=== PATIENT | female | born 1945 | race Caucasian/White ===

== ENCOUNTER 2022-05-23 06:15 | Observation (INO) ==
--- NOTE | 2022-04-20 11:11 | PAT Medication Instructions ---
Medication Instructions Date of Service April 20, 2022 Home Medications buspirone 5 mg tablet 10 mg PO BID escitalopram oxalate 10 mg tablet 10 mg PO QAM amlodipine 10 mg tablet 10 mg PO HS PRN hydroxyzine HCl 25 mg tablet 25 mg PO HS Take morning of surgery With a small sip of water, OTHERWISE NOTHING TO EAT OR DRINK AFTER MIDNIGHT: buspirone 5 mg tablet 10 mg PO BID escitalopram oxalate 10 mg tablet 10 mg PO QAM Take evening before surgery buspirone 5 mg tablet 10 mg PO BID amlodipine 10 mg tablet 10 mg PO HS PRN hydroxyzine HCl 25 mg tablet 25 mg PO HS Other Notes If you have any questions please call us at [phone] or [phone] or [phone] or [phone]
--- NOTE | 2022-04-25 10:59 | Anesthesiology Consultation ---
Date of Service April 25, 2022 Assessment & Plan (1) Encounter for pre-operative examination: - awaiting echo. - cardiac murmur/MOSS: no previous echocardiogram per PCP office. Case discussed with Dr. Correa who advised patient to have echocardiogram prior to surgery. Optimization note completed for PCPAr Ramirez with surgeon's office made aware. - COVID screening: Per assessment on 04/25/2022: Travel screen negative, no known COVID-19 positive contacts or current COVID-19 related symptoms in past 2 weeks. Surgeon arranging preop COVID testing, scheduled 05/19/2022. Awaiting results. Chart Review Chart Review: Pending: Refer to Additional Notes / Consult section and Patient seen in Pre Admission Testing Teaching & Discussion Pre-Anesthesia Teaching/Discussion Notes: Instructed NPO after midnight before surgery, except medications with 15 cc of water. Medication instructions provided according to the PAT guidelines. History Surgery Operation Date: 05/23/22 10:35 Proposed Procedures p Right Total Knee Arthroplasty - Aníbal Sherwood DO Height/Weight Height: 5 ft 7 in Weight: 94.3 kg Allergies Allergy/AdvReac Type Severity Reaction Status Date / Time No Known Allergies Allergy Verified 04/05/22 15:25 Medications Home Medications Medication Instructions Recorded Confirmed Last Taken buspirone 5 mg tablet 10 mg PO BID 03/29/22 04/05/22 Unknown escitalopram oxalate 10 mg tablet 10 mg PO QAM 03/29/22 04/05/22 Unknown amlodipine 10 mg tablet 10 mg PO HS PRN Other 04/05/22 04/05/22 Unknown hydroxyzine HCl 25 mg tablet 25 mg PO HS 04/05/22 04/05/22 Unknown Past Medical History Medical History (Updated 04/25/22 @ 13:52 by Josselyn Cardona PA-C) Anxiety Cardiac murmur x yrs per pt, denies previous echocardiogram Depression Hypertension controlled, stable per pt SOB (shortness of breath) on exertion occ with 1 FOS Patient denies h/o stroke, seizures, heart attack, heart failure, DM, blood clots or blood transfusions. Exercise / Class Metabolic Activity II 4-5 Yardwork/Stairs/Walk up hill (occ SOB with 1 FOS, slight increase over time-pt feels d/t reduced activity with knee pain; denies chest discomfort) Past Family History Family History Other No known health problems Past Surgical History Surgical History History of section X 5 Past Anesthesia History No Hx of Anesthesia Complications and No Family Hx of Anesthesia Complications History of PONV No Hx of PONV and No Hx of Motion Sickness Social History Smoking Status: Never smoker Do You Dip or Chew Tobacco: No Hx Alcohol Use: No Hx Substance Use: No Review of Systems Patient denies chest pain, shortness of breath, snoring, witnessed apneas, reflux, fever, chills, cough, wheezing, dizziness, lightheadedndess or palpitations. Physical Exam Vital Signs Vitals BP 147/85 P 82 TEMP 98.2 SP02 97% on RA RESP 17 Physical Full cervical extension range of motion without pain TMD 3.5 finger breadths Mallampati Score 3 Dentition: intact, one front chipped upper; several loose lower teeth; denies caps/crowns, implants or bridges Lungs: normal respiratory effort. Clear throughout to auscultation, no adventitious breath sounds Cardiac: regular rate and rhythm, 2/6 systolic murmur noted Carotid arteries: negative bruit bilat Lab Results Anesthesia Preop Results Results Anesthesia Widget: WBC 7.81 K/ul (4.8-10.8) 04/25/22 Hgb 12.2 g/dl (12.0-16.0) 04/25/22 Hct 37.5 % (34.1-44.9) 04/25/22 Plt 302 K/uL (130-400) 04/25/22 Na 138 mmol/L (136-145) 04/25/22 K 4.1 mmol/L (3.5-5.1) 04/25/22 Cl 105 mmol/L (98-107) 04/25/22 CO2 27 mmol/L (21-32) 04/25/22 BUN 25 mg/dl (6-23) H 04/25/22 Creat 1.04 mg/dl (0.6-1.2) 04/25/22 Glucose Level 82 mg/dl (70-99(Fasting)) 04/25/22 PT 9.8 Seconds (9.0-12.0) 04/25/22 PTT 26.3 Seconds (21.0-31.0) 04/25/22 INR 0.9 (0.9-1.1) 04/25/22 Blood Type A Positive 04/25/22 Antibody Screen NEGATIVE 04/25/22 Testing Electrocardiogram Date: 04/25/22 NSR, rate 79 bpm Chest X-Ray Date: 04/25/22 No pneumothorax. No pleural effusions. There is mild diffuse interstitial thickening. This is likely chronic. Otherwise, no focal lung consolidations to suggest pneumonia. No evidence for pulmonary edema. The heart is top normal in size. There are calcifications within the aortic knob. Degenerative changes within the shoulders. Small linear scarlike density at the right lung base. [id number] degenerative changes within the thoracic spine. There is a 3.4 cm metallic pin overlying the soft tissues of the back near the thoracolumbar junction. This only seen on the lateral view and therefore may be external to the patient. IMPRESSION: 1. No acute process within the chest. 2. Mild interstitial thickening which is likely chronic. 3. There is a 3.4 cm metallic pin overlying the soft tissues of the back near the thoracolumbar junction. This only seen on the lateral view and therefore may be external to the patient.
--- NOTE | 2022-05-19 13:46 | History & Physical Report ---
Date of Service May 19, 2022 Assessment & Plan (1) Osteoarthritis of right knee: We will proceed with a right total knee arthroplasty. Postoperatively she will be started on aspirin for DVT prophylaxis and discharged home in our outpatient joint protocol. She plans to have therapy the following day. History of Present Illness Chief Complaint: Osteoarthritis of the right knee. Primary Care Provider: Ramila Palma is a pleasant 76-year-old female who has been dealing with chronic worsening right knee pain and disability. She has severe varus deformity of her right knee. She has difficult time with full extension. She has trouble walking around. She has moderate pain in her knee. X-rays and clinical examination were diagnostic for advanced osteoarthritis of the right knee. After failing conservative treatment, she has elected proceed with a right total knee arthroplasty.. Allergies Allergy/AdvReac Type Severity Reaction Status Date / Time No Known Allergies Allergy Verified 04/05/22 15:25 Home Medications Medication Instructions Recorded Confirmed Type buspirone 5 mg tablet 10 mg PO BID 03/29/22 04/05/22 History escitalopram oxalate 10 mg tablet 10 mg PO QAM 03/29/22 04/05/22 History amlodipine 10 mg tablet 10 mg PO HS PRN Other 04/05/22 04/05/22 History hydroxyzine HCl 25 mg tablet 25 mg PO HS 04/05/22 04/05/22 History Past Med/Surg History Medical History Anxiety Cardiac murmur x yrs per pt, denies previous echocardiogram Depression Hypertension controlled, stable per pt SOB (shortness of breath) on exertion occ with 1 FOS Surgical History History of section X 5 Family History Other No known health problems Social History Smoking Status: Never smoker Second Hand Exposure: No; Hx Alcohol Use: No Hx Substance Use: No Preferred Language: Turkmen Communication Ability: Effective Moisture Meter Operator Required: No Beliefs That Will Affect Care: L[employer]-Day L[employer]-Day Beliefs: HOLINESS Current Living Situation: Spouse and Family Feels Safe at Home: Yes Assistive Devices: Glasses Review of Systems All systems reviewed & are unremarkable except as noted in HPI & below. Physical Exam On physical examination of the right knee, she has very poor range of motion from 15 to 100 degrees. She has no instability. She is a varus deformity. She has tenderness palpation of the distal femoral condyles.. Constitutional WD/WN, vitals as above Eyes PERRL, conjunctivae normal, anicteric sclerae ENMT external ear and nose normal, oropharynx normal Neck trachea midline, no thyromegaly Respiratory normal respiratory effort, lungs clear to auscultation Cardiovascular RRR, no murmur, no edema Gastrointestinal (Abdomen) normal bowel sounds, soft, nontender, no hepatosplenomegaly Skin no rashes, warm and dry Psychiatric A+Ox3, euthymic affect Results & Data Results & Data Laboratory Results . Diagnostic Findings X-ray of the right knee shows advanced osteoarthritis with joint space narrowing, osteophyte formation, and [id number] articulation. PG Care Time/CCT Total # of Minutes Spent Total Time Spent with Patient: Total time spent is greater than 50% in coordination of care (as documented) at patient's floor/unit and/or counseling patient: Coding Level of Care Code None Diagnoses Osteoarthritis of right knee M17.11
[~2022-05-23 06:15] MED LIST: ACETAMINOPHEN 500 MG TAB PO SCH; FAMOTIDINE 20 MG TAB PO SCH; GABAPENTIN 300 MG CAP PO SCH; Ketorolac (*for OR use only*) 30 MG, dexAMETHasone 4 MG, KETAMINE HCL (**OR use only) 1... INFIL SCH; LR 500ML BOLUS, THEN 15ML/HR IV SCH; LR 60ML/HR IV SCH; TRANEXAMIC ACID 1,000 MG **IV Intra-op IV SCH; TRANEXAMIC ACID 1,000 MG **IV Pre-op IV SCH; ceFAZolin 2000MG 2,000 MG/15 ML SYR IV SCH; dexAMETHasone 4 MG TAB PO SCH
[2022-05-23] MEDS ORDERED: EPINEPHrine INJ 1 MG/ML AMP ONE (06:24)
[2022-05-23] MEDS ORDERED: DEXAMETHASONE SOD INJ 4 MG/ML VIAL ONE (06:24)
[2022-05-23] MEDS ORDERED: BUPIVACAINE 0.25% 30 ML VIAL ONE (06:24)
[2022-05-23] MEDS ORDERED: MEPIVACAINE HCL 1.5% 30 ML VIAL ONE (06:25)
--- NOTE | 2022-05-23 06:41 | History & Physical Bridge Note ---
Date of Service May 23, 2022 History & Physical Bridge Note I have examined the patient, reviewed the History & Physical and in the interval since the performance of the History & Physical I have noted the following changes of clinical significance: no changes noted
[2022-05-23] MEDS ORDERED: ONDANSETRON INJ 2 MG/ML 2 ML VIAL ONE (07:36)
[2022-05-23] MEDS ORDERED: LIDOCAINE 2% MPF LOCAL 5 ML VIAL INFIL ONE (07:36)
[2022-05-23] MEDS ORDERED: PROPOFOL IV EMULSION 10 MG/ML 20 ML VIAL IV ONE (07:36)
[2022-05-23] MEDS ORDERED: MIDAZOLAM HCL 1 MG/ML 2ML VIAL ONE (07:36)
[2022-05-23] MEDS ORDERED: LIDOCAINE 2%/EPINEPHRINE 1:200,000 20 ML SDV ONE (08:13)
[2022-05-23] MEDS ORDERED: ORTHO JOINT ANESTHETIC ONE (08:33)
[2022-05-23] MEDS ORDERED: PHENYLEPHRINE HCL 10 MG/ML VIAL ONE (10:00)
[2022-05-23] MEDS ORDERED: oxyCODONE/ACETAMINOPHEN 5mg/325mg TAB PO PRN (10:13)
--- NOTE | 2022-05-23 10:15 | Operative Report ---
PG Post Operative Report Pre & Post Diagnosis Operation Date: 05/23/22 08:50 Pre-Op Diagnosis: Right Knee Osteoarthritis Post-Op Diagnosis: Right Knee Osteoarthritis I identified the patient and participated in the time-out.: Yes Procedure Operation Date: 05/23/22 08:50 Actual Procedures p Right Total Knee Arthroplasty(Right) - Aníbal Sherwood DO Surgeon Aníbal Sherwood DO Medical Field Representative Aníbal Rowland PA-C Estimated Blood Loss 20 Findings Consistent with Post-Op Diagnosis Specimens Right femoral and tibial bone Description of Procedure Implants used: I used a [employer] Person[employer] total knee arthroplasty system with a size 6 PS standard femur, E tibia with a 30 mm stem extension, 31 oval patella, and a size 10 CPS polyethylene bearing. All components were cemented in place with Biomet cement. Minerva arrived [facility] for the above procedure. She was seen in the preoperative holding area and the operative extremity was identified and signed. She was given a preoperative antibiotic, TXA, an epidural anesthetic and an adductor nerve block. She was taken back to the operating room and laid on the table in supine position. She was given basic sedation. The operative knee was then prepped and draped in sterile fashion. A timeout was done, and the patient and the operative extremity was properly identified. A midline incision was made directly over the patella. Dissection was taken down to the extensor mechanism. A subvastus arthrotomy was used. The medial retinaculum was released and the fat pad was mostly excised. The knee was flexed and the ACL, PCL, and meniscus were removed. A drill was sent down the center of the femoral canal followed by an intramedullary mayelin. Off that mayelin a distal femoral cutting block was placed. 9 mm was resected off the distal femur at 5 of valgus. A posterior referencing AP sizing guide was then placed on the distal femur. The femur measured to be a size 6. 2 drill holes were placed in 3 of external rotation. A 4-in-1 cutting block was then impacted into place. Anterior, posterior, and chamfer cuts were then made. The proximal tibia was then exposed. An external tibial alignment guide was placed. A tibial cut guide was then anchored in place and the proximal tibia was then resected. The posterior aspect of the knee was then ope karen up and any additional meniscus fragments and osteophytes were removed. The tibia measured to be a size E. The tibial plate was then placed in the appropriate rotation and the tibia was drilled and punched. Trial components were then placed. I used a size 10 CPS polyethylene insert. The knee was brought through a full range of motion and felt to be stable. The peg holes for the femoral component were then drilled. The patella was then everted and 9 mm was resected off the posterior aspect of the patella. The patella measured to be a size 31 oval. 3 peg holes were then drilled. A trial patella was placed. The knee was once again brought through a full range of motion and felt to be stable. Trial components were then removed. The surrounding soft tissues were injected with 100 cc of an orthopedic pain control cocktail. All components were then cemented into place with Biomet cement. The final polyethylene insert was then snapped into place. Once cement was dry the tourniquet was deflated. Hemostasis was obtained. A dilute betadyne lavage was then done for 3 minutes. The joint was then irrigated with normal saline solution. The subvastus arthrotomy was then closed with #1 Vicryl suture. The skin was closed with 2-0 Vicryl, 3-0V lock suture, and francesco. A soft compressive dressing was placed. She was then transferred to a hospital bed and taken to the postanesthesia care unit in stable condition. She tolerated the procedure well. Aníbal Rowland PA-C, was present for the entire procedure. He was critical for patient positioning, prepping, draping, retraction exposure, wound closure and application of sterile dressing. I attest to the content of the Intraoperative Record and any orders documented therein. Any exceptions are noted below.
--- NOTE | 2022-05-23 11:13 | XRay Report ---
XR knee RT 1 or 2V routine CLINICAL HISTORY: Postoperative evaluation. COMPARISON: Knee radiographs March 29, 2022. FINDINGS: Alignment of the total right knee arthroplasty is anatomic. There is no periprosthetic fra cture or unexpected radiopaque foreign body. There are skin francesco. IMPRESSION: Expected findings following total right knee arthroplasty. ACT 112: Negative or not required by law. Electronically signed by: Juan Neely M.D. 05/23/2022 11:11 AM
[2022-05-23] MEDS ORDERED: ONDANSETRON INJ 2 MG/ML 2 ML VIAL IV PRN (11:16)
[2022-05-23] MEDS ORDERED: fentaNYL citrate 100 MCG/2 ML VIAL IV PRN (11:16)
[2022-05-23] MEDS ORDERED: ePHEDrine sulfate 50 MG/ML AMP IV PRN (11:16)
[2022-05-23] MEDS ORDERED: ATROPINE SULFATE 0.1 MG/ML 10ML SYR IV PRN (11:16)
--- NOTE | 2022-05-23 11:23 | Anesthesia Procedure Note ---
Date of Service May 23, 2022 Anesthesia Post Epidural Note Vital Signs Vital Signs: Temp Pulse Resp BP Pulse Ox O2 Del Method O2 Flow Rate 37.1 C 76 19 151/84 H 91 2 05/23/22 11:10 05/23/22 11:10 05/23/22 11:10 05/23/22 11:10 05/23/22 11:10 05/23/22 11:10 05/23/22 11:00 Pain Intensity Right Knee: Pain Intensity: 0 Notes Mental Status: alert / awake / arousable Nausea / Vomiting: adequately controlled Pain: adequately controlled Airway Patency, RR, SpO2: stable & adequate BP & HR: stable & adequate Hydration State: stable & adequate Neuraxial Anesthesia: was administered and sensory block is resolving Anesthetic Complications: no major complications apparent and Pt Satisfied with anesthetic care Epidural: Removed without complications and With tip intact
--- NOTE | 2022-05-23 11:23 | Anesthesiology Progress Note ---
Date of Service May 23, 2022 Anesthesia Post Procedure Vital Signs Vital Signs: Temp Pulse Resp BP BP Pulse Ox O2 Del Method 05/23/22 11:10 37.1 C 76 19 151/84 H 91 Room Air 05/23/22 11:00 67 18 161/86 H 95 Oxymask 05/23/22 10:50 73 18 133/85 96 Oxymask 05/23/22 10:40 72 14 145/70 H 96 Oxymask 05/23/22 10:33 37 C 75 16 118/66 93 Oxymask 05/23/22 07:16 176/91 H 05/23/22 06:59 36.4 C L 89 18 197/103 H 95 Room Air O2 Flow Rate 05/23/22 11:10 05/23/22 11:00 2 05/23/22 10:50 6 05/23/22 10:40 8 05/23/22 10:33 8 05/23/22 07:16 05/23/22 06:59 Pain Intensity Right Knee: Pain Intensity: 0 Transfer of Care Handoff Completed per policy Notes Mental Status: alert / awake / arousable Patient Amnestic to Procedure: Yes Nausea / Vomiting: adequately controlled Pain: adequately controlled Airway Patency, RR, SpO2: stable & adequate BP & HR: stable & adequate Hydration State: stable & adequate Anesthetic Complications: no major complications apparent
[2022-05-23] MEDS ORDERED: METOCLOPRAMIDE HCL INJ 5 MG/ML 2 ML VIAL IV PRN (17:55)
[2022-05-23] MEDS ORDERED: MAGNESIUM HYDROXIDE SUSP 30 ML UDC PO PRN (17:55)
[2022-05-23] MEDS ORDERED: oxyCODONE HCL IR 5 MG TAB (IMMEDIATE RELEASE) PO PRN (17:55)
[2022-05-23] MEDS ORDERED: bisacodyL 10 MG SUPP PR PRN (17:55)
[2022-05-23] MEDS ORDERED: amLODIPine BESYLATE 5 MG TAB PO PRN (17:55)
[2022-05-23] MEDS ORDERED: NALOXONE HCL 0.4 MG/1 ML VIAL/CARP IV PRN (17:55)
[2022-05-23] MEDS ORDERED: HYDROmorphone INJ 0.5 MG/0.5 ML SYR IV PRN (17:55)
[2022-05-23] MEDS: KETOROLAC TROMETHAMINE 15 MG/ML VIAL IV SCH ×2 (18:16→23:29)
[2022-05-23] MEDS: SODIUM CHLORIDE 0.9% 1000ML 1,000 ML IV SCH (18:16)
[2022-05-23] MEDS: DOCUSATE SODIUM 100 MG CAP PO SCH (20:49)
[2022-05-23] MEDS: busPIRone 5 MG TAB PO SCH (20:49)
[2022-05-23] MEDS: ASPIRIN 81 MG ECTAB PO SCH (20:50)
[2022-05-23] MEDS: ceFAZolin 2000MG 2,000 MG/15 ML SYR IV SCH (20:51)
[2022-05-23] MEDS ORDERED: SENNA 8.6 MG TAB PO SCH (21:00)
[2022-05-23] MEDS ORDERED: hydrOXYzine HCl 25 MG TAB PO SCH (21:00)
[2022-05-24] MEDS: SODIUM CHLORIDE 0.9% 1000ML 1,000 ML IV SCH (04:03)
[2022-05-24] MEDS: KETOROLAC TROMETHAMINE 15 MG/ML VIAL IV SCH (05:30)
[2022-05-24] MEDS: ceFAZolin 2000MG 2,000 MG/15 ML SYR IV SCH (05:32)
--- NOTE | 2022-05-24 07:02 | Orthopedic Progress Note ---
Date of Service May 24, 2022 Assessment & Plan (1) Status post right knee replacement: She is feeling better this morning. She was not able to go home yesterday due to weakness in her right leg. She feels she has more strength today. She will be seen by physical therapy for ambulation and range of motion exercises. She is on aspirin for DVT prophylaxis. She can be discharged home later today. She will follow-up with orthopedics in 2 weeks. Rubens Palma was seen and examined at bedside this morning. Overall she is doing well. She says she feels she has more strength in her right knee. She has no new complaints.. Review of Systems All systems reviewed & are unremarkable except as noted in HPI & below. Physical Exam On physical examination of her right knee, the dressing is clean and dry. Her leg is out full extension. She can do a straight leg raise. She has active dorsiflexion plantarflexion of the right ankle.. Results & Data Results & Data Laboratory Results . Diagnostic Findings Postoperative x-rays of the right knee show the prosthesis to be in anatomic alignment without any evidence of fracture, dislocation, or loosening. PG Care Time/CCT Total # of Minutes Spent Total Time Spent with Patient: Total time spent is greater than 50% in coordination of care (as documented) at patient's floor/unit and/or counseling patient: Coding Level of Care Code 86029 Post Operative Follow-Up Diagnoses Status post right knee replacement Z96.651
--- NOTE | 2022-05-24 07:04 | Discharge Summary ---
Date of Service May 24, 2022 Admission HPI (Per Admitting) Minerva is a pleasant 76-year-old female who has been dealing with chronic worsening right knee pain and disability. She has severe varus deformity of her right knee. She has difficult time with full extension. She has trouble walking around. She has moderate pain in her knee. X-rays and clinical examination were diagnostic for advanced osteoarthritis of the right knee. After failing conservative treatment, she has elected proceed with a right total knee arthroplasty.. Admission Exam (Per Admitting) On physical examination of the right knee, she has very poor range of motion from 15 to 100 degrees. She has no instability. She is a varus deformity. She has tenderness palpation of the distal femoral condyles.. Principal Diagnosis Same as "Discharge Diagnosis" noted below under Discharge Instructions. Discharge Exam On physical examination of her right knee, the dressing is clean and dry. Her leg is out full extension. She can do a straight leg raise. She has active dorsiflexion plantarflexion of the right ankle.. Discharge Data Procedures Performed Operation Date: 05/23/22 08:50 Actual Procedures p Right Total Knee Arthroplasty(Right) - Aníbal Sherwood DO Ordered Studies 05/23/22 05:00 US - OR guided needle placemen Routine Hospital Course (1) Status post right knee replacement: On May 23, 2022 Minerva arrived at [facility] and underwent a right knee replaced without complication. She had an epidural anesthetic. Postoperatively she was started on aspirin for DVT prophylaxis. She was in our outpatient joint protocol. Unfortunately she did not feel stable with physical therapy. Physical therapy saw her several times and she was having difficulty weightbearing on her right leg without her leg giving out on her. Because of this, she was kept overnight for observation. On postop day #1, she was feeling much better. She was seen by physical therapy and able to participate in ambulation and range of motion exercises. She was then discharged home. She will follow-up with orthopedics in 2 weeks. PG Care Time/CCT Total # of Minutes Spent Total Time Spent with Patient: Total time spent is greater than 50% in coordination of care (as documented) at patient's floor/unit and/or counseling patient: Discharge Plan Discharge Items Reason For Visit: POST OP Discharge Diagnosis: Right knee replacement Activity: Per Instructions section Call non-emergency contact if: your wound has increased redness and your wound has increased drainage Follow-up/Referrals: Ramila Mckeon PA-C [Primary Care Provider] - Addtl Attending Provider Instructions: Activity and Therapy Recommendations: * If you are using [facility] then therapy will be provided at your home until they feel you have accomplished all of your goals. * If you are using [facility] then Physical Therapy will be provided until they feel you are ready to start Outpatient Physical Therapy. * If you are not using home therapy then Outpatient Physical Therapy should start about 3-5 days from your day of surgery. Therapy will last about 6-10 weeks * It is important not to put a pillow under your knee when you are relaxing or s leeping. It is just as important to make sure you are getting your knee perfectly straight as it is to regain your knee bend. * You were shown a series of exercises in the hospital. Do these exercises three times each day including the exercises you were shown in physical therapy. * Get up and walk several times each day. For the first four weeks, try not to stand or walk for more than one hour at a time. If you do stand or walk for more than one hour, you will not hurt anything, but your leg will likely swell. * As you feel comfortable, you may change from the walker or crutches to a cane and then to independent walking. Medications: * Narcotic You will likely be sent home from the hospital with a prescription for the narcotic pain medication that worked best throughout your stay. * Aspirin Most patients will be required to take Aspirin 81mg twice a day for 6 weeks after surgery. This is obtained [id number] and a prescription is not necessary. * Other medications may be prescribed for specific circumstances. If you have any questions, please call the office at . * Resume previous home medications unless otherwise instructed TEDs/Elastic Stockings: The white elastic stockings help limit swelling and prevent blood clots from forming in your legs.~ The more you wear them, the more they work. Wear them for six weeks. Dressing Care: The dressing can be changed after physical therapy on postop day #1. Daily dry dressing changes for a few days, especially if the incision is still draining some. If the incision is not draining then you may leave the francesco open to air. If there is a little bit of drainage or if the francesco are getting stuck on your clothing then cover the incision with a dry dressing. The francesco will be removed at your 2 week follow-up appointment. Showering: You may shower 5 days from the day of surgery as long as the incision is no longer draining. You may shower with the francesco exposed. Let soapy water run over the francesco and pat them dry. Do not scrub or soak the incision. Things To Watch For: * Drainage from the incision site that occurs more than one week after your surgery. * Increased redness at the incision site. * Fever above 102 degrees Fahrenheit. * Unusual chest pain or shortness of breath. * Call [facility] at with any of the above problems Follow-Up Visit: Follow-up with Dr. Sherwood's PA (Aníbal Rowland) 2-3 weeks after your day of surgery. He will remove your francesco and answer any questions. If you have any additional questions or concerns, Dr Sherwood is usually in the office at the same time and will be available An appointment was probably scheduled when you signed-up for surgery in the office. If you have any questions call Office Instructions: More detailed instructions as well as Frequently Asked Questions were provided in a folder by our office when you signed-up for surgery. Please review these instructions when you get home. If you have any further questions or concerns, please feel free to call the office at [phone] Pending Studies at Discharge: No Stand-Alone Forms: Anesthesia/Sedation, Adult, [facility] Medications and DC Order Prescriptions: New oxycodone-acetaminophen 5-325 mg tablet 1 tab PO Q6H PRN (Reason: pain) Qty: 30 0RF aspirin [Adult Aspirin Regimen] 81 mg tablet,delayed release (DR/EC) 81 mg PO BID Qty: 84 0RF celecoxib [Celebrex] 200 mg capsule 200 mg PO BID Qty: 28 0RF Rx Instructions: Take 1 pill twice a day for 2 weeks after surgery Continued buspirone 5 mg tablet 10 mg PO BID escitalopram oxalate 10 mg tablet 10 mg PO QAM hydroxyzine HCl 25 mg Tablet 25 mg PO HS amlodipine 10 mg Tablet 10 mg PO HS PRN (Reason: Other) Krames/Other Patient Handouts: DVT Post Op Prevention Admission Data Admit Date/Time: 05/23/22 15:28 Attending Provider: Aníbal Sherwood Admit Provider: Aníbal Sherwood Primary Care Provider: Ramila Mckeon
[2022-05-24] MEDS ORDERED: dexAMETHasone 4 MG TAB PO SCH (08:00)
[2022-05-24] MEDS: ASPIRIN 81 MG ECTAB PO SCH (08:55)
[2022-05-24] MEDS: busPIRone 5 MG TAB PO SCH (08:56)
[2022-05-24] MEDS: DOCUSATE SODIUM 100 MG CAP PO SCH (08:56)
[2022-05-24] MEDS ORDERED: ESCITALOPRAM OXALATE 10 MG TAB PO SCH (09:00)
[2022-05-24] MEDS ORDERED: MULTIVITAMIN TAB PO SCH (09:00)
== END 2022-05-24 11:39 | disposition home or self-care (01) ==
LOC: ASU 06:15 → 3E 06:15

== ENCOUNTER 2025-09-22 05:25 | Observation (INO) ==
--- NOTE | 2025-08-25 10:22 | PAT Medication Instructions ---
Medication Instructions Date of Service August 25, 2025 Home Medications Medication Instructions Recorded aspirin 81 mg tablet,delayed 81 mg PO BID #84 tabs 05/23/22 release (Adult Aspirin Regimen) celecoxib 200 mg capsule (Celebrex) 200 mg PO BID #28 caps 05/23/22 oxycodone-acetaminophen 5 mg-325 1 tab PO Q6H PRN pain #30 tabs 05/23/22 mg tablet buspirone 5 mg tablet 10 mg PO BID escitalopram oxalate 10 mg tablet 20 mg PO QAM hydroxyzine HCl 25 mg tablet 25 mg PO HS aspirin 81 mg tablet,delayed release (Adult Aspirin Regimen) 81 mg PO BID celecoxib 200 mg capsule (Celebrex) 200 mg PO BID oxycodone-acetaminophen 5 mg-325 mg tablet 1 tab PO Q6H PRN pain ASK your surgeon for instructions celecoxib 200 mg capsule (Celebrex) 200 mg PO BID ASK your prescriber and surgeon aspirin 81 mg tablet,delayed release (Adult Aspirin Regimen) 81 mg PO BID Take morning of surgery With a small sip of water, OTHERWISE NOTHING TO EAT OR DRINK AFTER MIDNIGHT: buspirone 5 mg tablet 10 mg PO BID escitalopram oxalate 10 mg tablet 20 mg PO QAM oxycodone-acetaminophen 5 mg-325 mg tablet 1 tab PO Q6H PRN pain (if needed) Take evening before surgery buspirone 5 mg tablet 10 mg PO BID hydroxyzine HCl 25 mg tablet 25 mg PO HS oxycodone-acetaminophen 5 mg-325 mg tablet 1 tab PO Q6H PRN pain (if needed) Other Notes If you have any questions please call us at [phone] or [phone] or [phone] or [phone]
--- NOTE | 2025-08-28 10:25 | Anesthesiology Consultation ---
Date of Service August 28, 2025 Assessment & Plan (1) Encounter for pre-operative examination: Plan - BP 203/108 in PAT clinic. Patient states is not regularly taking antihypertensive prescribed by PCP. She denies headache, visual change, numbness, weakness, nausea, vomiting, chest discomfort, shortness of breath or abdominal pain. I strongly advised evaluation/treatment in the ER and discussed morbidity/mortality even with patient stating plan to take antihypertensive when she gets home. Patient and daughter verbalize full understanding, patient refuses ER evaluation. Her daughter confirms she does have antihypertensive me dication at home (they cannot recall name) and that she will take dosage prescribed by PCP when she is home. Case discussed in detail with Dr. Thompson while patient was in PAT and he agreed that nothing further can be done today given patient is not agreeable to ER evaluation but agreed that she will need a PCP clearance. They were advised that PCP clearance will be needed prior to s urgery-optimization form to be faxed to Ramila May. Bhanu with PCP office made aware, states patient is prescribed losartan and hydrochlorothiazide. They will contact patient/made provider aware of BP reading and need for clearance. Surgeon's office made aware. - Outpatient joint assessment: Patient is currently scheduled for inpatient [facility]. If re-evaluated and patient/surgeon requests outpatient pathway, patient is not a candidate for outpatient joint program. Chart Review Chart Review: Pending: Refer to Additional Notes / Consult section and Patient seen in Pre Admission Testing Teaching & Discussion Pre-Anesthesia Teaching/Discussion Notes: Instructed NPO after midnight before surgery, except medications with 15 cc of water. Medication instructions provided according to the PAT guidelines. History Surgery Operation Date: 09/22/25 12:15 Proposed Procedures p Robotic Assisted Left Total Knee Arthroplasty - Aníbal Sherwood, Height/Weight Height: 5 ft 4 in Weight: 101.3 kg Allergies Allergy/AdvReac Type Severity Reaction Status Date / Time No Known Allergies Allergy Verified 08/25/25 08:03 Medications Home Medications Medication Instructions Recorded Confirmed Last Taken buspirone 5 mg tablet 10 mg PO BID 03/29/22 08/25/25 05/21/22 escitalopram oxalate 10 mg tablet 20 mg PO QAM 03/29/22 08/25/25 05/21/22 hydroxyzine HCl 25 mg tablet 25 mg PO HS 04/05/22 08/25/25 05/19/22 aspirin 81 mg tablet,delayed 81 mg PO BID #84 tabs 05/23/22 08/25/25 Unknown release (Adult Aspirin Regimen) celecoxib 200 mg capsule (Celebrex) 200 mg PO BID #28 caps 05/23/22 08/25/25 Unknown oxycodone-acetaminophen 5 mg-325 1 tab PO Q6H PRN pain #30 tabs 05/23/22 08/25/25 Unknown mg tablet Past Medical History Medical History Anxiety Cardiac murmur Echo 05/2022: Mild MR (indication list on report was for murmur evaluation) Depression History of hypertension No longer on meds Osteoarthritis Patient denies h/o stroke, seizures, heart attack, heart failure, DM, blood clots/DVTs or blood transfusions. Exercise / Class Metabolic Activity III < 4 Walking/Shop/Light housework (denies chest discomfort or shortness of br eath with usual activities, ambulates with cane) Past Family History Family History Other No known health problems Past Surgical History Surgical History History of carpal tunnel release bilat History of section X 5 History of tooth extraction Status post right knee replacement Right TKA 05/23/22: Epidural + regional, [facility] Past Anesthesia History No Hx of Anesthesia Complications and No Family Hx of Anesthesia Complications History of PONV No Hx of PONV and No Hx of Motion Sickness Social History Smoking Status: Never smoker Do You Dip or Chew Tobacco: No Hx Alcohol Use: No Hx Substance Use: No substance use type: does not use Review of Systems Patient denies chest pain, shortness of breath, dyspnea on exertion, snoring, witnessed apneas, reflux, fever, chills, cough, wheezing, or palpitations. Physical Exam Vital Signs Vitals BP 203/108 P 86 SP02 94% on RA RESP 18 Physical Patient resting comfortably in chair in no acute distress, alert and oriented, responding appropriately throughout visit Full cervical extension range of motion without pain TMD 3.5 finger breadths Mallampati Score 3 Dentition: several chipped/loose teeth, two dental implants; denies chipped or loose teeth, caps/crowns, or bridges Lungs: normal respiratory effort. Good air movement, clear throughout to auscultation, no adventitious breath sounds Cardiac: regular rate and rhythm, 2/6 systolic murmur noted, no gallops or rubs Carotid arteries: negative bruit bilat Lab Results Anesthesia Preop Results Results Anesthesia Widget: WBC 8.99 K/ul (4.8-10.8) 08/28/25 Hgb 12.7 g/dL (12.0-16.0) 08/28/25 Hct 37.6 % (37.0-47.0) 08/28/25 Plt 308 K/uL (130-400) 08/28/25 Na 139 mmol/L (136-145) 08/28/25 K 4.5 mmol/L (3.5-5.1) 08/28/25 Cl 107 mmol/L (98-107) 08/28/25 CO2 27 mmol/L (21-32) 08/28/25 BUN 21 mg/dl (6-23) 08/28/25 Creat 0.96 mg/dl (0.6-1.2) 08/28/25 Glucose Level 91 mg/dl (70-99(Fasting)) 08/28/25 PT 10.1 Seconds (9.0-12.0) 08/28/25 PTT 25 Seconds (21-31) 08/28/25 INR 1.0 (0.9-1.1) 08/28/25 Blood Type A Positive 08/28/25 Antibody Screen NEGATIVE 08/28/25 Testing Electrocardiogram Date: 08/28/25 NSR, rate 90 bpm Chest X-Ray Date: 08/28/25 Heart size and pulmonary vasculature are normal. No consolidation or pleural effusion. Stable hyperexpanded lungs. IMPRESSION: No acute findings. Echocardiogram Date: 05/20/22 EF 55-59% Normal LV wall motion Mild cLVH Mild mitral regurgitation Grade I diastolic dysfunction
--- NOTE | 2025-09-17 07:51 | History & Physical Report ---
Date of Service September 17, 2025 Assessment & Plan (1) Osteoarthritis of left knee: We will proceed with a left total knee arthroplasty. Postoperatively, she will be started on aspirin for DVT prophylaxis and kept overnight in the hospital for postop medical management. She plans to go to outpatient physical therapy after discharge. History of Present Illness Chief Complaint: Osteoarthritis of the left knee. Primary Care Provider: Ramila Palma is a pleasant 80-year-old female who I did a right knee replacement on 3 years ago. She has done very well with that. She is now dealing with left knee pain. She uses a cane because of her left knee. It is starting to bother her more and more. X-rays and clinical exam have been diagnostic for advanced arthritis of the left knee. After failed conservative treatment, she has elected to proceed with a left total knee arthroplasty. Allergies Allergy/AdvReac Type Severity Reaction Status Date / Time No Known Allergies Allergy Verified 08/25/25 08:03 Home Medications Medication Instructions Recorded Confirmed Type buspirone 5 mg tablet 10 mg PO BID 03/29/22 08/25/25 History escitalopram oxalate 10 mg tablet 20 mg PO QAM 03/29/22 08/25/25 History hydroxyzine HCl 25 mg tablet 25 mg PO HS 04/05/22 08/25/25 History aspirin 81 mg tablet,delayed 81 mg PO BID #84 tabs 05/23/22 08/25/25 Rx release (Adult Aspirin Regimen) celecoxib 200 mg capsule (Celebrex) 200 mg PO BID #28 caps 05/23/22 08/25/25 Rx oxycodone-acetaminophen 5 mg-325 1 tab PO Q6H PRN pain #30 tabs 05/23/22 08/25/25 Rx mg tablet Past Med/Surg History Problem List Encounter for pre-operative examination Osteoarthritis of left knee Medical History Osteoarthritis History of hypertension No longer on meds Depression Anxiety Cardiac murmur Echo 05/2022: Mild MR (indication list on report was for murmur evaluation) Surgical History History of carpal tunnel release bilat History of tooth extraction Status post right knee replacement Right TKA 05/23/22: Epidural + regional, [facility] History of section X 5 Family History Other No known health problems Social History Smoking Status: Never smoker Second Hand Exposure: Yes ( smoked); Do You Dip or Chew Tobacco: No; Hx Alcohol Use: No Hx Substance Use: No Preferred Language: Filipino Communication Ability: Effective Visual Impairment: No Limitations Patient Care Director Required: No Beliefs That Will Affect Care: None Current Living Situation: Family Feels Safe at Home: Yes Assistive Devices: Cane, Denture - Lower and Glasses Review of Systems All systems reviewed & are unremarkable except as noted in HPI & below. Physical Exam On physical exam of the left knee, she has a varus deformity. Tenderness palpation of the distal medial femoral condyle and over the medial joint line.. Constitutional WD/WN, vitals as above Eyes PERRL, conjunctivae normal, anicteric sclerae ENMT external ear and nose normal, oropharynx normal Neck trachea midline, no thyromegaly Respiratory normal respiratory effort Cardiovascular RRR, no murmur, no edema Gastrointestinal (Abdomen) normal bowel sounds, soft, nontender, no hepatosplenomegaly Psychiatric A+Ox3, euthymic affect Results & Data Results & Data Laboratory Results . Diagnostic Findings . PG Care Time/CCT Total # of Minutes Spent Total Time Spent with Patient: Total time spent is greater than 50% in coordination of care (as documented) at patient's floor/unit and/or counseling patient: Coding Level of Care Code None Diagnoses Osteoarthritis of left knee M17.12
[2025-09-22] MEDS: LR 60ML/HR IV SCH (06:05)
[2025-09-22] MEDS ORDERED: BUPIVACAINE 0.5 % 5 MG/1 ML PF 10ML VIAL ONE (06:23)
[2025-09-22] MEDS ORDERED: BUPIVACAINE 0.25% PF 30 ML VIAL ONE (06:23)
[2025-09-22] MEDS ORDERED: MIDAZOLAM HCL 1 MG/ML 2ML VIAL ONE (06:34)
[2025-09-22] MEDS ORDERED: PROPOFOL IV EMULSION 10 MG/ML 20 ML VIAL IV ONE (06:34)
[2025-09-22] MEDS ORDERED: GLYCOPYRROLATE 0.2 MG/ML VIAL ONE (06:34)
[2025-09-22] MEDS ORDERED: ONDANSETRON INJ 2 MG/ML 2 ML VIAL ONE (06:34)
[2025-09-22] MEDS ORDERED: KETAMINE HCL 10MG/ML SYR ONE (06:34)
[2025-09-22] MEDS ORDERED: ONDANSETRON INJ 2 MG/ML 2 ML VIAL IV PRN ×2 (06:37→09:23)
[2025-09-22] MEDS ORDERED: ATROPINE SULFATE 0.1 MG/ML 10ML SYR IV PRN (06:37)
--- NOTE | 2025-09-22 06:37 | History & Physical Bridge Note ---
Date of Service September 22, 2025 History & Physical Bridge Note I have examined the patient, reviewed the History & Physical and in the interval since the performance of the History & Physical I have noted the following changes of clinical significance: no changes noted
[2025-09-22] MEDS: TRANEXAMIC ACID 1,000 MG **IV Pre-op IV SCH (06:47)
[2025-09-22] MEDS ORDERED: ePHEDrine sulfate 50 MG/5 ML SYR ONE (07:03)
[2025-09-22] MEDS ORDERED: PHENYLEPHRINE 100MCG/ML 5ML SYR ONE (07:03)
[2025-09-22] MEDS: ORTHO JOINT ANESTHETIC ONE (07:34)
[2025-09-22] MEDS: ROPIV 0.5% 246mg, Ketorolac 30mg, EPINEPHrine 0.5mg in NSS INFIL SCH (07:34)
--- NOTE | 2025-09-22 08:06 | Operative Report ---
PG Post Operative Report Pre & Post Diagnosis Operation Date: 09/22/25 07:00 Pre-Op Diagnosis: Left Knee Osteoarthritis Post-Op Diagnosis: Left Knee Osteoarthritis I identified the patient and participated in the time-out.: Yes Procedure Operation Date: 09/22/25 07:00 Actual Procedures p Robotic Assisted Left Total Knee Arthroplasty(Left) - Aníbal Sherwood DO Surgeon Aníbal Sherwood DO Simulation Educator Preston Martinez PA-C Estimated Blood Loss 30 Findings Consistent with Post-Op Diagnosis Specimens Left femoral and tibial bone Description of Procedure Implants used: I used a [employer] total knee arthroplasty system with a size 7 standard PS femur, E tibia, and a size 10 CPS polyethylene bearing. All components were press-fit in place. Minerva arrived [facility] for the above procedure. She was seen in the preoperative holding area and the operative extremity was identified and signed. She was given a preoperative antibiotic, TXA, a spinal anesthetic and an adductor nerve block. She was taken back to the operating room and laid on the table in supine position. She was given basic sedation. The operative knee was then prepped and draped in sterile fashion. A timeout was done, and the patient and the operative extremity was properly identified. A midline incision was made directly over the patella. Dissection was taken down to the extensor mechanism. A medial parapatellar arthrotomy was used. The medial retinaculum was released and the fat pad was mostly excised. The knee was flexed and the ACL, PCL, and meniscus were removed. The alignment of the knee replacement was assisted with a [employer] robotic knee. The femoral array was pinned in the distal femur and the tibial array was pinned using a percutaneous technique in the upper shaft of the tibia. The robot was appropriately calibrated and the structure of the knee was mapped out. The components were then manipulated on the screen to account for any malalignment and to assist in gap balancing. Once I was happy with the placement of the components on the screen, a distal femoral cutting guide was brought in place. The distal femur was then resected. The femur measured to be a size 7. A 4-in-1 cutting block was then put into place by the robot and 2 peg holes were drilled. The 4-in-1 cutting block was then impacted into place and anterior, posterior, and chamfer cuts were made. The cutting block was then brought down to the tibia and pinned into place. The proximal tibia was then resected. The posterior aspect of the knee was then opened up and any additional meniscus fragments and osteophytes were removed. The tibia measured to be a size E. The tibial plate was then placed in the appropriate rotation and the tibia was drilled and punched. Trial components were then placed. A size 10 CPS polyethylene insert was then trialed. The knee was brought through a full range of motion and felt to be stable. Trial components were then removed. The surrounding soft tissues were injected with 100 cc of an orthopedic pain control cocktail. All components were then press-fit into place. The final polyethylene insert was then snapped into place. The tourniquet was deflated. Hemostasis was obtained. An Irrisept lavage was then done for 3 minutes. The joint was then irrigated with normal saline solution. The medial parapatellar arthrotomy was then closed with #1 Vicryl suture. The skin was closed with 2-0 Vicryl, 3-0V lock suture, and [place] Zipline. A soft compressive dressing was placed. She was then transferred to a hospital bed and taken to the postanesthesia care unit in stable condition. She tolerated the procedure well. Preston Martinez PA-C, was present for the entire procedure. He was critical for patient positioning, prepping, draping, retraction exposure, wound closure and application of sterile dressing. I attest to the content of the Intraoperative Record and any orders documented therein. Any exceptions are noted below.
--- NOTE | 2025-09-22 09:09 | XRay Report ---
XR knee LT 1 or 2V routine CLINICAL HISTORY: Left knee arthroplasty. COMPARISON: Left knee radiographs July 23, 2025. FINDINGS: Alignment of the total left knee arthroplasty is anatomic. There is no periprosthetic frac ture or unexpected radiopaque foreign body. IMPRESSION: Expected findings following total left knee arthroplasty. ACT 112: Negative or not required by law. Electronically signed by: Juan Neely M.D. 09/22/2025 9:08 AM
[2025-09-22] MEDS ORDERED: HYDROmorphone INJ 0.5 MG/0.5 ML SYR IV PRN (09:23)
[2025-09-22] MEDS ORDERED: NALOXONE HCL 0.4 MG/1 ML VIAL/CARP IV PRN (09:23)
[2025-09-22] MEDS ORDERED: MAGNESIUM HYDROXIDE SUSP 30 ML UDC PO PRN (09:23)
[2025-09-22] MEDS ORDERED: METOCLOPRAMIDE HCL INJ 5 MG/ML 2 ML VIAL IV PRN (09:23)
[2025-09-22] MEDS: GABAPENTIN 300 MG CAP PO SCH (09:33)
[2025-09-22] MEDS: ACETAMINOPHEN 500 MG TAB PO SCH ×2 (09:33→14:15)
[2025-09-22] MEDS: FAMOTIDINE 20 MG TAB PO SCH (09:33)
[2025-09-22] MEDS: dexAMETHasone**PF** 10 MG/ML VIAL IV SCH (09:33)
[2025-09-22] MEDS: SODIUM CHLORIDE 0.9% 1,000 ML IV SCH (09:40)
[2025-09-22] MEDS: KETOROLAC TROMETHAMINE 15 MG/ML VIAL IV SCH (09:54)
[2025-09-22] MEDS: DOCUSATE SODIUM 100 MG CAP PO SCH (09:58)
[2025-09-22] MEDS: busPIRone 5 MG TAB PO SCH (09:58)
[2025-09-22] MEDS: MULTIVITAMIN TAB PO SCH (09:59)
[2025-09-22] MEDS: ESCITALOPRAM OXALATE 20 MG TAB PO SCH (09:59)
[2025-09-22] MEDS: hydroCHLOROthiazide 25 MG TAB PO SCH (10:26)
[2025-09-22] MEDS: LOSARTAN POTASSIUM 50 MG TAB PO SCH (10:26)
--- NOTE | 2025-09-22 10:59 | Anesthesiology Progress Note ---
Date of Service September 22, 2025 Anesthesia Post Procedure Vital Signs Vital Signs: Temp Pulse Pulse Resp BP Pulse Ox O2 Del Method 09/22/25 10:25 36.4 C L 92 H 18 158/84 H 96 Nasal Cannula 09/22/25 09:49 99 H 18 155/81 H 92 Nasal Cannula 09/22/25 09:20 36.4 C L 85 18 161/87 H 93 Nasal Cannula 09/22/25 09:00 36.4 C L 89 20 124/78 92 Nasal Cannula 09/22/25 08:50 90 16 135/83 91 Oxymask 09/22/25 08:40 91 H 17 132/66 91 Oxymask 09/22/25 08:30 36.7 C 92 H 19 107/66 92 Oxymask 09/22/25 05:40 36.7 C 88 20 176/96 H 93 Room Air O2 Flow Rate 09/22/25 10:25 2 09/22/25 09:49 4 09/22/25 09:20 4 09/22/25 09:00 4 09/22/25 08:50 6 09/22/25 08:40 10 09/22/25 08:30 10 09/22/25 05:40 Pain Intensity Left Knee: Pain Intensity: 0 Transfer of Care Handoff Completed per policy Notes Mental Status: alert / awake / arousable Patient Amnestic to Procedure: Yes Nausea / Vomiting: adequately controlled Pain: adequately controlled Airway Patency, RR, SpO2: stable & adequate BP & HR: stable & adequate Hydration State: stable & adequate Neuraxial Anesthesia: was administered and sensory block is resolving Anesthetic Complications: no major complications apparent and Pt Satisfied with anesthetic care
[2025-09-22] MEDS: ASPIRIN 81 MG ECTAB PO SCH (20:30)
[2025-09-22] MEDS: SENNA 8.6 MG TAB PO SCH (20:31)
[2025-09-23 04:27] VITALS: O2SAT 94
--- NOTE | 2025-09-23 08:13 | Orthopedic Progress Note ---
Date of Service September 23, 2025 Assessment & Plan (1) Status post total left knee replacement: * Continue Current Treatment * Disposition: home, outpt PT * Daily treatment: Physical Therapy/ Occupational Therapy per protocol * Weight bearing status: WBAT * Continue to monitor for ABLA * Pain control * DVT prophylaxis, ASA * Office/hospital f/u 2 weeks for progress check and staple/suture removal * Plan for discharge today pending PT/OT clearance Subjective . Active Problems: S/p left TKA POD 1 80 y/o female s/p left TKA. Doing well overall, pain managed and improved function. Denies fever/chills, chest pain/SOB, nausea/vomiting. Otherwise no co mplaints. Review of Systems All systems reviewed & are unremarkable except as noted in HPI & below. Physical Exam . * General: Alert and oriented, no acute distress * Constitutional: well-developed, well-nourished. * Respiratory: Normal respiratory effort, no distress * Gastrointestinal: No tenderness to palpation, no rigidity or guarding. * Skin: No rash or lesion. * Neurologic: Grossly normal * Musculoskeletal: left knee surgical dressing CDI, not removed for exam. Otherwise no obvious deformity or overlying skin changes RLE. Diffuse TTP distal thigh and knee region. Otherwise no specific tenderness of proximal thigh, lower leg, foot/ankle. AROM knee flexion 100 degrees. AROM foot/ankle intact. Sensation intact plantar/dorsal foot. Brisk capillary refill. Results & Data Results & Data Laboratory Results . Diagnostic Findings . Knee X-Ray 09/22/25 08:34 XR knee LT 1 or 2V routine CLINICAL HISTORY: Left knee arthroplasty. COMPARISON: Left knee radiographs July 23, 2025. FINDINGS: Alignment of the total left knee arthroplasty is anatomic. There is no periprosthetic fracture or unexpected radiopaque foreign body. IMPRESSION: Expected findings following total left knee arthroplasty. ACT 112: Negative or not required by law. Electronically signed by: Juan Neely M.D. 09/22/2025 9:08 AM PG Care Time/CCT Total # of Minutes Spent Total Time Spent with Patient: Total time spent is greater than 50% in coordination of care (as documented) at patient's floor/unit and/or counseling patient: Coding Level of Care Code 06038 Post Operative Follow-Up Diagnoses Status post total left knee replacement Z96.652
[2025-09-23 08:36] VITALS: BP 152/70; PULSE 76; RESP 18; TEMP 97.7
== END 2025-09-23 11:45 | disposition home or self-care (01) ==
LOC: 3E 05:25 → ASU 05:25